=== PATIENT | female | born 2000 | race Caucasian/White ===

== ENCOUNTER → 2023-08-29 08:00 | Outpatient (BNVA) | payer OTHER, MEDICAID, SELFPAY | PROVIDERS: Visit Provider Nurse Practitioner Women's Health | DX: N92.6 Irregular menstruation, unspecified (principal); Z34.90 Encounter for supervision of normal pregnancy, unspecified, unspecified trimester | CPT/HCPCS: 81025; 84315 ==

== ENCOUNTER → 2023-09-04 15:30 | Outpatient (BNVA) | payer MEDICAID, SELFPAY | PROVIDERS: Visit Provider Nurse Practitioner Women's Health | DX: Z34.90 Encounter for supervision of normal pregnancy, unspecified, unspecified trimester (principal) | CPT/HCPCS: 76801 ==

== ENCOUNTER → 2023-09-10 08:06 | Outpatient (BNVA) | payer OTHER, MEDICAID, SELFPAY | PROVIDERS: Visit Provider Nurse Practitioner Women's Health | DX: Z34.90 Encounter for supervision of normal pregnancy, unspecified, unspecified trimester (principal) | CPT/HCPCS: 80307; 81000; 84439; 84443; 84481; 85025; 86592; 86762; 86803; 86850; 86900; 87086; 87340; 87491; 87591; 87806 ==

== ENCOUNTER → 2023-10-02 08:22 | Outpatient (BNVA) | payer OTHER, MEDICAID, SELFPAY | PROVIDERS: Visit Provider Obstetrics & Gynecology | DX: Z34.91 Encounter for supervision of normal pregnancy, unspecified, first trimester (principal) | CPT/HCPCS: 84315; 87624 ==

== ENCOUNTER → 2023-11-13 09:39 | Outpatient (BNVA) | payer OTHER, MEDICAID, SELFPAY | PROVIDERS: Visit Provider Obstetrics & Gynecology | DX: Z34.92 Encounter for supervision of normal pregnancy, unspecified, second trimester (principal) | CPT/HCPCS: 76805 ==

== ENCOUNTER → 2023-11-27 07:56 | Outpatient (BNVA) | payer MEDICAID, SELFPAY | PROVIDERS: Visit Provider Obstetrics & Gynecology | DX: R82.90 Unspecified abnormal findings in urine | CPT/HCPCS: 84315; 87086 ==

== ENCOUNTER 2023-12-18 04:06 | Emergency (ER) | payer MEDICAID, SELFPAY ==
[2023-12-18 04:10] VITALS: BP 129/71; PULSE 114; RESP 18; TEMP 36.6; O2SAT 98; BMI 35.4
--- NOTE | 2023-12-18 04:19 | W.ED.ALLEREA ---
HPI - Allergic Reaction General: Chief complaint: Allergic Reaction Stated complaint: Allergic Reaction Time Seen by Provider: 12/18/23 04:15 History of Present Illness: HPI narrative: 23-year-old female who presents to the emergency room with an allergic reaction. She says she awoke with a rash. She itches all over. She says she has some sore throat and some chest tightness. No shortness of breath. No cough. No known new exposures. Review of Systems Narrative: Constitutional symptoms: Negative except as documented in HPI. Skin symptoms: Negative except as documented in HPI. Eye symptoms: Negative except as documented in HPI. ENMT symptoms: Negative except as documented in HPI. Respiratory symptoms: Negative except as documented in HPI. Cardiovascular symptoms: Negative except as documented in HPI. Gastrointestinal symptoms: Negative except as documented in HPI. Genitourinary symptoms: Negative except as documented in HPI. Musculoskeletal symptoms: Negative except as documented in HPI. Neurologic symptoms: Negative except as documented in HPI. Psychiatric symptoms: Negative except as documented in HPI. Endocrine symptoms: Negative except as documented in HPI. PFS ED PFSH: Family History Grandmother Heart disease Hypertension Diabetes Mother Diabetes Female Reproductive History: Date of last menstrual period: 06/22/23 Physical Exam Narrative: EXAM NARRATIVE: General: Alert, no acute distress. Skin: warm and dry Head: Normocephalic Neck: Trachea midline Eye: Extraocular movements are intact. Ears, nose, mouth and throat: Oral mucosa moist Respiratory: Respirations are non-labored Musculoskeletal: Normal ROM Neurological: Alert and oriented, No focal neurological deficit observed. Psychiatric: Cooperative, appropriate mood & affect. Course Vital Signs: Vital signs: Vital Signs Temperature 97.9 F 12/18/23 04:10 Pulse Rate 111 H 12/18/23 04:33 Respiratory Rate 18 12/18/23 04:33 Blood Pressure 127/91 12/18/23 04:33 Pulse Oximetry 100 12/18/23 04:33 Oxygen Delivery Me thod Room Air 12/18/23 04:10 MDM - Allergic Reaction Medical Decision Making Assessment and plan: Allergic reaction/urticaria ? IV Solu-Medrol, IV Benadryl and IV Pepcid. - Discharged home - Discussed plan with patient. Answered any questions. - Evaluation and treatment of this problem were appropriate in the emergency setting. No radiology studies performed this visit Discharge Plan Discharge Patient Disposition: Home Clinical Impression: Urticaria Allergic reaction Qualifiers: Encounter type: initial encounter Qualified Code(s): T78.40XA - Allergy, unspecified, initial encounter Condition: Stable Prescriptions: New prednisone 20 mg tablet 60 mg PO DAILY 5 Days Qty: 15 0RF hydroxyzine HCl 25 mg tablet 25 mg PO BID PRN (Reason: anxiety) Qty: 30 0RF No Action DHA 200 mg capsule PO cranberry 500 mg capsule 500 mg PO BID Rx Instructions: administer with meals Saccharomyces boulardii [Digest Probiotic (S.boulardii)] 250 mg capsule 250 mg PO BID nitrofurantoin monohyd/m-cryst [Macrobid] 100 mg capsule 100 mg PO BID Qty: 14 0RF Rx Instructions: must administer with a meal/food Discharge Orders: Discharge ED (Routine); Ordered 12/18/23 Ordered By: Gabrielle Jeong Discharge Diet: Usual diet Discharge Activity: Increase activity as tolerated Patient Instructions: Urticaria (ED) Activity Restrictions/Additional Instructions: Thank you for choosing [facility] for your healthcare needs today. Please realize this is an emergency room and that we are providing you with a medical screening exam and this may not be complete and all inclusive of all the testing and or work up that you may need to determine your ailment or severity of your illness. You have been screened and evaluated and felt safe for discharge. Health conditions do change or evolve sometimes and as such it is important that you follow up with your Primary Doctor to be re checked, 3-5 days is a general good time frame for follow up. You are always welcome to return to the ED for re assessment if your symptoms are worsening or you have new concerns Coding Level of Care Code ED Technical Solutions Engineer for Rupa Elliott
[2023-12-18] MEDS: methylPREDNISolone sod succ 125 mg/2 mL INJ IVP (04:25)
[2023-12-18] MEDS: diphenhydrAMINE 50 mg/mL SDV 1mL IVP (04:28)
[2023-12-18] MEDS: famotidine 20 mg/2 mL INJ 40 MG IVP (04:30)
[2023-12-18 04:33] VITALS: BP 127/91; PULSE 111; RESP 18; O2SAT 100
[2023-12-18 05:10] VITALS: BP 134/78; PULSE 86; RESP 16; O2SAT 98
== END 2023-12-18 05:11 | disposition home or self-care (01) ==
PROVIDERS: Emergency Provider Emergency Medicine
DX: L50.0 Allergic urticaria (principal); T78.40XA Allergy, unspecified, initial encounter; X58.XXXA Exposure to other specified factors, initial encounter
CPT/HCPCS: 96374; 96375; 99284; J1200; J2919; J3490

== ENCOUNTER → 2024-01-09 11:00 | Outpatient (BNVA) | payer MEDICAID, SELFPAY | PROVIDERS: Visit Provider Obstetrics & Gynecology | DX: Z34.90 Encounter for supervision of normal pregnancy, unspecified, unspecified trimester (principal) | CPT/HCPCS: 82950 ==

== ENCOUNTER 2024-02-12 11:55 | Outpatient (CLI) | payer MEDICAID, SELFPAY ==
[2024-02-12 12:31] VITALS: BMI 37.4
[2024-02-12 12:32] VITALS: RESP 15; TEMP 36.6; TEMP 36.7
[2024-02-12 12:44] VITALS: BP 127/63; PULSE 95
[2024-02-12 12:59] VITALS: BP 129/61; PULSE 88
== END 2024-02-12 13:05 | disposition home or self-care (01) ==
LOC: OPOB 11:59 → OBGYN 12:01 → OPOB 12:29 → OBGYN 12:30
PROVIDERS: Visit Provider Obstetrics & Gynecology
DX: O24.419 Gestational diabetes mellitus in pregnancy, unspecified control (principal); Z3A.00 Weeks of gestation of pregnancy not specified
CPT/HCPCS: 59025

== ENCOUNTER 2024-02-15 11:40 | Outpatient (CLI) | payer MEDICAID, SELFPAY ==
[2024-02-15] VITALS (8 sets, daily range): BP systolic 110–127; BP diastolic 64–70; PULSE 95–110; TEMP 36.2–37.1; O2SAT 96–98; BMI 37.1
== END 2024-02-15 12:30 | disposition home or self-care (01) ==
LOC: OPOB 11:40 → OBGYN 11:45
PROVIDERS: Visit Provider Obstetrics & Gynecology
DX: O24.419 Gestational diabetes mellitus in pregnancy, unspecified control (principal); Z3A.00 Weeks of gestation of pregnancy not specified
CPT/HCPCS: 59025

== ENCOUNTER → 2024-02-19 09:26 | Outpatient (BNVA) | payer MEDICAID, SELFPAY | PROVIDERS: Visit Provider Obstetrics & Gynecology | DX: Z36.4 Encounter for antenatal screening for fetal growth retardation (principal); O24.419 Gestational diabetes mellitus in pregnancy, unspecified control; Z3A.35 35 weeks gestation of pregnancy | CPT/HCPCS: 76816 ==

== ENCOUNTER 2024-02-19 10:45 | Outpatient (CLI) | payer MEDICAID, SELFPAY ==
[2024-02-15 12:00] VITALS: TEMP 37.1
[2024-02-19 10:45] VITALS: BMI 36.3
[2024-02-19 10:59] VITALS: BP 126/77; PULSE 96
[2024-02-19 11:14] VITALS: BP 128/71; PULSE 88
== END 2024-02-19 11:30 | disposition home or self-care (01) ==
LOC: OPOB 10:47 → OBGYN 10:49
PROVIDERS: Visit Provider Obstetrics & Gynecology
DX: Z34.90 Encounter for supervision of normal pregnancy, unspecified, unspecified trimester (principal); Z3A.00 Weeks of gestation of pregnancy not specified
CPT/HCPCS: 59025; 84315

== ENCOUNTER 2024-02-22 16:28 | Outpatient (CLI) | payer MEDICAID, SELFPAY ==
[2024-02-22 16:40] VITALS: BP 130/72; PULSE 111; BMI 36.8
[2024-02-22 17:00] VITALS: BP 115/59; PULSE 103
[2024-02-22 17:32] VITALS: BP 115/59; PULSE 103; RESP 16
== END 2024-02-22 17:20 ==
LOC: OPOB 16:30 → OBGYN 16:31
PROVIDERS: Visit Provider Obstetrics & Gynecology
DX: O24.419 Gestational diabetes mellitus in pregnancy, unspecified control (principal); Z3A.00 Weeks of gestation of pregnancy not specified
CPT/HCPCS: 59025; 99211

== ENCOUNTER 2024-02-26 13:37 | Outpatient (CLI) | payer MEDICAID, SELFPAY ==
[2024-02-26 13:45] VITALS: BP 131/76; PULSE 107
[2024-02-26 14:01] VITALS: BMI 37.8
== END 2024-02-26 14:20 ==
LOC: OPOB 13:38 → OBGYN 13:39
PROVIDERS: Visit Provider Obstetrics & Gynecology
DX: O24.419 Gestational diabetes mellitus in pregnancy, unspecified control (principal); Z3A.00 Weeks of gestation of pregnancy not specified
CPT/HCPCS: 59025

== ENCOUNTER 2024-02-29 14:40 | Outpatient (CLI) | payer MEDICAID, SELFPAY ==
[2024-02-29 14:53] VITALS: BP 133/61; PULSE 96
[2024-02-29 14:55] VITALS: BMI 37.5
[2024-02-29 15:08] VITALS: BP 124/67; PULSE 93
[2024-02-29 15:23] VITALS: BP 108/54; PULSE 94
[2024-02-29 15:38] VITALS: BP 107/52; PULSE 93
== END 2024-02-29 15:40 ==
LOC: OPOB 14:43 → OBGYN 14:46
PROVIDERS: Visit Provider Obstetrics & Gynecology
DX: O24.419 Gestational diabetes mellitus in pregnancy, unspecified control (principal); Z3A.00 Weeks of gestation of pregnancy not specified
CPT/HCPCS: 59025

== ENCOUNTER 2024-03-04 11:02 | Outpatient (CLI) | payer MEDICAID, SELFPAY ==
[2024-03-04 11:45] VITALS: RESP 18; BMI 37.5
[2024-03-04 11:58] VITALS: BP 124/69; PULSE 85; TEMP 35.6
[2024-03-04 12:01] VITALS: RESP 18
== END 2024-03-04 12:03 ==
LOC: OPOB 11:02 → OBGYN 11:32
PROVIDERS: Visit Provider Obstetrics & Gynecology
DX: O24.419 Gestational diabetes mellitus in pregnancy, unspecified control (principal); Z3A.00 Weeks of gestation of pregnancy not specified
CPT/HCPCS: 59025; 84315; 87081

== ENCOUNTER 2024-03-07 15:11 | Outpatient (CLI) | payer MEDICAID, SELFPAY ==
[2024-03-07 15:22] VITALS: BMI 37.9
[2024-03-07 15:26] VITALS: BP 137/67; PULSE 96
[2024-03-07 15:46] VITALS: BP 132/68; PULSE 105
== END 2024-03-07 17:00 | disposition home or self-care (01) ==
LOC: OPOB 15:14 → OBGYN 15:15
PROVIDERS: Visit Provider Obstetrics & Gynecology
DX: O24.419 Gestational diabetes mellitus in pregnancy, unspecified control (principal); Z3A.00 Weeks of gestation of pregnancy not specified
CPT/HCPCS: 59025

== ENCOUNTER 2024-03-11 10:43 | Outpatient (CLI) | payer MEDICAID, SELFPAY ==
[2024-03-11 10:51] VITALS: RESP 18
[2024-03-11 10:53] VITALS: BP 126/67; PULSE 93
[2024-03-11 10:55] VITALS: RESP 16; BMI 37.5
[2024-03-11 11:08] VITALS: BP 132/67; PULSE 88
== END 2024-03-11 11:22 ==
LOC: OPOB 10:43 → OBGYN 10:44
PROVIDERS: Visit Provider Obstetrics & Gynecology
DX: O24.419 Gestational diabetes mellitus in pregnancy, unspecified control (principal); Z3A.00 Weeks of gestation of pregnancy not specified
CPT/HCPCS: 59025; 84315

== ENCOUNTER 2024-03-14 15:15 | Outpatient (CLI) | payer MEDICAID, SELFPAY ==
[2024-03-14 15:28] VITALS: BP 125/67; PULSE 101
[2024-03-14 15:48] VITALS: RESP 16; BMI 37.4
== END 2024-03-14 15:57 | disposition home or self-care (01) ==
LOC: OPOB 15:20 → OBGYN 15:24
PROVIDERS: Visit Provider Obstetrics & Gynecology
DX: O24.419 Gestational diabetes mellitus in pregnancy, unspecified control (principal); Z3A.00 Weeks of gestation of pregnancy not specified
CPT/HCPCS: 59025

== ENCOUNTER 2024-03-18 18:52 | Inpatient (IN) | payer MEDICAID, SELFPAY ==
[2024-03-18] VITALS (23 sets, daily range): BP systolic 118–148; BP diastolic 59–82; PULSE 81–114; RESP 18; BMI 37.5
[2024-03-18 11:29] LABS: Basophils % 0.2 %; Eosinophils # 0.1 10^3/uL (0.0-0.8); Eosinophils % 0.9 %; Lymphocytes # 1.7 10^3/uL (0.8-4.8); Lymphocytes % 17.4 %; Mean Corpuscular HGB Conc 33.4 g/dL (30-55); Mean Corpuscular Hemoglobin 28.7 pg (27-33); Mean Corpuscular Volume 85.8 fl (85-98); Mean Platelet Volume 12.4 fL (7.4-10.4); Monocytes # 0.6 10^3/uL (0.2-0.9); Monocytes % 5.7 %; Neutrophils # 7.41 10^3/uL (1.8-7.7); Neutrophils % 75.2 %; Nucleated Red Blood Cells % 0 %; Platelet Count 186 10^3/cmm (157-399); Red Blood Count 4.43 10^6/uL (3.85-5.65); Red Cell Distribution Width 13.2 % (12.1-15.1); White Blood Count 9.85 10^3/uL (3.29-11.43)
[2024-03-18] MEDS: lactated ringers 1,000 ML 125 ML IV (11:39)
[2024-03-18] MEDS: oxytocin 30 UNIT/500 ML BAG IV (11:39)
[2024-03-18 12:07] LABS: Glucose Point of Care 104 mg/dL (70-110)
[2024-03-18 16:09] LABS: Glucose Point of Care 61 mg/dL (70-110)
[2024-03-18] MEDS: dextrose 5%-lactated ringers 1,000 ML 125 ML IV (18:30)
--- NOTE | 2024-03-18 19:20 | PM.OBGYHP ---
Providers/Chief Complaint Admitting Physician: Desmond Busch MD Primary WEB CONTENT PRODUCER: Desmond Busch MD Chief Complaint: IOL HPI WEB CONTENT PRODUCER History of Present Illness Patient was seen and admitted on March 18, 2024, at 1420 23 y.o. EDC March 29, 2024 At 38 w 3 d With gestational diabetes on insulin regimen Now admitted for induction of labor No c/o + movements h/o x one 1-h glucola done 01-09-24 Patient was started on accuchecks Accuchecks showed elevated FBS and 1-h PP Patient was started on insulin Presently on A.M. Novolog 17 U Novolin 14 U 5 PM Novolog 13 U 9 PM Novolin 15 U Accuchecks almost all WNL POBHx: x one, uncomplicated; 4 y.o.; 8 lbs 13 oz; no h/o GDM Had normal 1-h glucola Present Details : 2 Para: 1 Labs Rubella: Immune RPR: Negative GBS: Negative Medications/Allergies Home Medications Medication Instructions Recorded Confirmed Last Taken Type cranberry 500 mg capsule 500 mg PO BID 08/29/23 03/11/24 Unknown History blood sugar diagnostic (Accu-Chek #100 ea 01/23/24 03/11/24 Unknown Rx Guide test strips) blood-glucose meter (Accu-Chek #1 ea 01/23/24 03/11/24 Unknown Rx Guide Glucose Meter) lancets 31 gauge (Comfort Touch #100 ea 01/23/24 03/11/24 Unknown Rx Ultra Thin Lancets) insulin syringe-needle U-100 0.5 #100 ea 02/06/24 03/11/24 Unknown Rx mL 29 gauge x 1/2 (BD Insulin Syringe) insulin aspart U-100 100 unit/mL See Rx Instructions .Route 02/21/24 03/11/24 Unknown Rx (3 mL) subcutaneous pen .COMPLEX #15 mL insulin NPH isoph U-100 human 100 See Rx Instructions .Route 02/27/24 03/11/24 Unknown Rx unit/mL subcutaneous suspension .COMPLEX #15 mL (Humulin N NPH U-100 Insulin (isophane susp)) pen needle, diabetic 29 gauge x #100 ea 02/27/24 03/11/24 Unknown Rx 1/2 (BD Ultra-Fine Original Pen Needle) Allergies Allergy/AdvReac Type Severity Reaction Status Date / Time latex Allergy rash Uncoded 03/11/24 08:22 PFSH WEB CONTENT PRODUCER PFSH: Family History Grandmother Heart disease Hypertension Diabetes Mother Diabetes Social History Smoking and tobacco/nicotine status: never used tobacco/nicotine Personal Safety: Do you feel safe at home: Yes Victim of physical abuse: No Victim of emotional abuse: No Victim of sexual abuse: No Would you like help information on resources?: No History History History 2 Term 1 0 Miscarriages/Ectopic 0 Living Children 1 Care DEVIN Calculator Estimated Delivery Date Method Current WG Current Estimate 03/29/24 LMP (Certain) 38w 4d Other Estimates 03/30/24 Ultrasound #1 38w 3d Vitals/I&O/Wt Last Vital Signs Temp 98.2 F 03/19/24 04:15 Pulse 99 03/19/24 04:15 Resp 16 03/19/24 04:15 BP 110/66 03/19/24 04:15 Pulse Ox 97 03/19/24 04:15 O2 Del Method Room Air 03/19/24 04:15 03/18/24 03/18/24 03/19/24 14:59 22:59 06:59 Intake Total 16.766 / 16.766 1526.250 / 1543.016 511.151 / 2054.167 Output Total 500 / 500 Balance 16.766 / 16.766 1526.250 / 1543.016 11.151 / 1554.167 Weight last 48 hrs Weight 233 lb Physical Exam Narrative: Weight 230 lbs; 5?6? VS normal General comfortable, awake, alert Lungs: clear Cor: RRR FH 37 cm, cephalic Cervix: 3 cm / 50% / -3 Ext: no edema External monitor: heart tracing good variability, + accelerations Data 03/18/24 11:12 Results Labs OB ([facility]): Obstetrics US 02/19/24 Blood Type O Positive 03/18/24 Antibody Screen Negative 03/18/24 Hct 38.0 % (36-47) 03/18/24 Hgb 12.70 g/dL (11.27-16.99) 03/18/24 Rho(D) Type Rh positive 03/18/24 Plt Count 186 10^3/cmm (157-399) 03/18/24 Hep Bs Antigen Non-reactive (NON-REACTIVE) 09/10/23 Hep Bs Ag Confirmation Not Reportable 09/10/23 Hepatitis C Antibody Non-reactive (Nonreactive) 09/10/23 Rubella IgG Antibody 377.3 IU/mL (0.0-10.0) H 09/10/23 RPR Nonreactive (Nonreactive) 09/10/23 HIV 1&2 Ab & HIV 1 Ag Non-reactive (Non-Reactiv) 09/10/23 TSH 1.13 uIU/mL (0.27-4.20) 09/10/23 Free T4 1.18 ng/dL (0.82-1.77) 09/10/23 C.trachomatis RNA (TMA) Not detected (NOT DETECTED) 09/10/23 N.gonorrhoeae RNA (TMA) Not detected (NOT DETECTED) 09/10/23 T. vaginalis Amp RNA Not detected (NOT DETECTED) 09/10/23 Chlamydia/GC Comment See note 09/10/23 Glucose 1 Hr 50 gm 211 mg/dL (85-140) H 01/09/24 HCG, Qual Positive (Negative) H 08/29/23 Urine Opiates Screen Negative ng/mL (Negative) 09/10/23 Ur Barbiturates Screen Negative ng/mL (Negative) 09/10/23 Ur Phencyclidine Scrn Negative ng/mL (Negative) 09/10/23 Ur Amphetamines Screen Negative ng/mL (Negative) 09/10/23 U Benzodiazepines Scrn Negative ng/mL (Negative) 09/10/23 Urine Cocaine Screen Negative ng/mL (Negative) 09/10/23 U Marijuana (THC) Screen Negative ng/mL (Negative) 09/10/23 Micro Urine Specimen 11/27/23 Pap Smear Interpret See note 10/02/23 A&P Assessment and plan (1) : 38 w 3 d Qualifiers: Weeks of gestation: 11 weeks Qualified Code(s): Z3A.11 - 11 weeks gestation of (2) Gestational diabetes: Gestational diabetes, on insulin regimen Now admitted for induction of labor Start Pitocin per protocol h/o x one Rh + Attestations Medical Necessity Statement*: patient at 38 w 3 d, with gestational diabetes on insulin, admitted for induction of labor Coding Level of Care Code Acute Code for Chg Fwd Diagnoses 11 weeks gestation of Z3A.11 Weeks of gestation: 11 weeks Gestational diabetes O24.419
[2024-03-18 20:02] LABS: Glucose Point of Care 130 mg/dL (70-110)
[2024-03-18] MEDS: fentaNYL 50 mcg/mL INJ 2mL IVP (22:08)
[2024-03-18] MEDS: ondansetron 2 mg/ML SDV 2 mL 4 MG IVP (22:26)
--- NOTE | 2024-03-18 23:40 | PM.DELIVERY ---
Delivery Note: Date of delivery: March 18, 2024 Pre-delivery diagnoses: 38 w 3 d gestational diabetes on insulin induction of labor Post-delivery diagnoses: 38 w 3 d gestational diabetes on insulin induction of labor Procedure: induction of labor vaginal delivery Op report anesthesia: Epidural Delivering Physician: Desmond Busch MD Estimated blood loss (mL): 300 Findings: , vigorous male infant Cord gases and blood obtained Normal placenta and cord No episiotomy / lacerations EBL: 300 cc No complications Pre-Delivery Course: normal labor course Delivery: vaginal Post-Delivery Status: good History History History 2 Term 1 0 Miscarriages/Ectopic 0 Living Children 1 A&P Assessment and plan (1) Vaginal delivery: Coding Level of Care Code Acute Code for Chg Fwd Diagnoses Vaginal delivery O80 Time Spent (min) 60
[2024-03-19] VITALS (16 sets, daily range): BP systolic 110–137; BP diastolic 60–83; PULSE 91–127; RESP 16–18; TEMP 36.7–37.1; O2SAT 95–98
[2024-03-19] MEDS: ibuprofen 800 mg tablet PO ×3 (09:09→21:01)
[2024-03-19] MEDS: docusate sodium 100 mg Capsule PO ×2 (09:09→21:01)
[2024-03-19] MEDS: PRENATAL VIT NO.130/IRON/FOLIC 1 EACH TABLET PO (09:10)
[2024-03-19 11:31] LABS: Hematocrit 37.6 % (36-47); Mean Corpuscular HGB Conc 33.2 g/dL (30-55); Mean Corpuscular Hemoglobin 28.6 pg (27-33); Mean Platelet Volume 12.2 fL (7.4-10.4); Platelet Count 204 10^3/cmm (157-399); Red Blood Count 4.37 10^6/uL (3.85-5.65); Red Cell Distribution Width 13.2 % (12.1-15.1); White Blood Count 15.29 10^3/uL (3.29-11.43)
[2024-03-19] MEDS: benzocaine-menthol 78 gm Canister 1 SPRAY TOPICAL (14:49)
[2024-03-19] MEDS: lanolin oint 7 gm 1 APPLIC TOPICAL ×2 (14:50→15:03)
[2024-03-20 04:10] VITALS: BP 116/64; PULSE 89; RESP 16; TEMP 37.1; O2SAT 97
[2024-03-20] MEDS: ibuprofen 800 mg tablet PO (08:47)
[2024-03-20] MEDS: docusate sodium 100 mg Capsule PO (08:47)
[2024-03-20] MEDS: PRENATAL VIT NO.130/IRON/FOLIC 1 EACH TABLET PO (08:47)
[2024-03-20 12:30] VITALS: BP 115/77; PULSE 91; RESP 16; TEMP 36.8
[2024-03-20 12:43] VITALS: BP 115/77; PULSE 91; RESP 16; TEMP 36.8
== END 2024-03-20 12:55 | disposition home or self-care (01) | DRG 807 ==
LOC: OBGYN 03-19 07:58 → OPOB 03-19 14:38
PROVIDERS: Admitting Provider Obstetrics & Gynecology; PCP Family Medicine; Visit Provider Obstetrics & Gynecology
DX: O24.424 Gestational diabetes mellitus in childbirth, insulin controlled (principal); Z37.0 Single live birth; Z3A.38 38 weeks gestation of pregnancy
CPT/HCPCS: 36415; 36416; 59409; 82962; 83986; 85025; 85027; 86850; 86900; 96374; 98960; J2405; J2590; J3010; J7120; J7121